=== PATIENT | male | born 1965 | race Two or more races ===

== ENCOUNTER 2023-05-04 19:45 | Emergency (ER) | payer OTHER ==
[~2023-05-04] VITALS: Ht 177.8 cm; Wt 71.2 kg
[2023-05-04] MEDS ORDERED: HYDRALAZINE HCL25 MG PO (20:23)
[2023-05-04] MEDS ORDERED: OLANZAPINE2.5 MG PO (20:23)
[2023-05-04] MEDS ORDERED: CARVEDILOL ER40 MG PO (20:23)
[2023-05-04] MEDS ORDERED: TEMAZEPAM30 MG PO (20:25)
[2023-05-04 23:17] LABS: HEMATOCRIT 40.3 % (39.0-48.0); HEMOGLOBIN 13.6 g/dL (13-16.00); MEAN CELL VOLUME 89.6 fL (80.0-100.00); MEAN CORPUSCULAR HEMOGLOBIN 30.1 pg (27.00-32.0); MEAN CORPUSCULAR HGB CONC 33.6 g/dl (32.0-36.0); PLATELET COUNT 301 K/uL (150-450); RED CELL DISTRIBUTION WIDTH 14.1 % (11.5-14.5)
[2023-05-04 23:35] LABS: ALBUMIN 3.7 gm/dL (3.4-5.0); BILIRUBIN TOTAL 0.52 mg/dL (0.3-1.2); CALCIUM 9.4 mg/dL (8.5-10.1); CREATININE SERUM 1.89 mg/dL (0.70-1.30); GFR 36.69; GLOBULINA 4.1 G/DL (2.4-3.5); POTASSIUM 4.07 mEq/L (3.5-5.1); TOTAL PROTEIN 7.8 gm/dL (6.4-8.2)
[2023-05-04] MEDS ORDERED: PEPCID AC20 MG PO (23:48)
== END 2023-05-05 00:07 | disposition home or self-care (01) ==
LOC: ER 19:45
PROVIDERS: General Practice
DX: K29.70 Gastritis, unspecified, without bleeding (principal)
CPT/HCPCS: 36415; 96365; 96366; 99284; J1885; J2405; J3490; J7030